=== PATIENT | female | born 1975 | race Caucasian/White ===

== ENCOUNTER → 2017-12-01 | Outpatient (CLI) | payer BC ==
--- NOTE | 2017-12-01 12:58 | MRI ---
MRI OF THE BRAIN AND CERVICAL SPINE WITHOUT AND WITH IV CONTRAST CLINICAL INDICATION: Demyelinating disease and migraines. TECHNIQUE: Pre-contrast T1-w, T2, and diffusion-w sequences of the brain with ADC maps. Post-contrast images of the brain. Intravenous contrast material was administered for the examination. Pre -contra st sagittal T1-, T2-, and T2-w fat-saturated images, and axial T1- and T2-w images of the cervical sp ine. Postcontrast axial and sagittal images obtained. COMPARISON: None. FINDINGS: Brain: There is no abnormal brain parenchymal signal. There is no mass or mass-effect, or abnormal ex tra-axial fluid collection. Diffusion imaging shows no hyperacute, acute, or early subacute infarcti on. The ventricles are normal in size, shape and position. There are normal signal voids in the large r intracranial vessels. The paranasal sinuses and mastoid air cells are predominantly clear. The gerhard ow signal pattern is within normal limits. There is no abnormal brain parenchymal or leptomeningeal enhancement. Cervical spine: The cervical spine demonstrates normal alignment. Vertebral bodies are normal in heig ht. There is a normal marrow signal pattern. Mild degenerative disc height loss particularly at C4-C5 . There is no abnormality of the cranio-cervical junction. The included paraspinal soft tissues are g rossly normal. No abnormal enhancement or intrinsic abnormal cord signal. Evaluation of the individual levels demonstrates: C1-2: Normal C2-3: Normal C3-4: Normal C4-5: Disc osteophyte complex with [id number] central stenosis C5-6: Normal C6-7: Normal C7-T1: Normal IMPRESSION: 1. Normal unenhanced and enhanced MRI of the brain. Specifically no evidence of restricting or enhanc ing lesions to suggest active demyelination. 2. No demyelinating lesions of the cervical spine are appreciated. 3. Degenerative disc disease worst at C4-C5 see above for details. Reported By:
== END | disposition home or self-care (01) | DRG 103 ==
LOC: RAD 09:58
PROVIDERS: ATTEND Psychiatry & Neurology Neurology
DX: G43.909 Migraine, unspecified, not intractable, without status migrainosus (principal); G37.8 Other specified demyelinating diseases of central nervous system; M50.321 Other cervical disc degeneration at C4-C5 level
CPT/HCPCS: 70553; 72156